=== PATIENT | male | born 1985 | race Caucasian/White ===

== ENCOUNTER 2018-02-18 08:16 | Inpatient (IN) ==
--- NOTE | 2018-02-18 08:39 | ED ---
HPI General Chief Complaint: Psychiatric Symptoms Stated Complaint: Psych Eval Time Seen by Provider: 02/18/18 14:06 Source: patient Mode of arrival: ambulatory Limitations: no limitations History of Present Illness HPI Narrative: 32-year-old male presents voluntarily for psychiatric evaluation. His therapist told him to come in for evaluation. He is having suicidal ideation and his [place] is to [place]. He denies history of suicidal attempts. Denies homicidal ideations. Reports visual hallucinations; says he sees white lights out of the corner of his eye. Denies auditory hallucinations. Reports illicit drug use using shrooms and marijuana occasionally. Denies alcohol use and has been sober for 7 months. Denies tobacco use. Admits to taking 3 1 mg Xanax and to 1 mg Klonopin and one extended release Adderall 20 mg within the past 6 hours. Says he did not take his medications and any attempt to kill himself. Says he took them to keep himself from killing himself. Says his thoughts are not aggravated by anything in particular, except for possible recurring memories and trauma. Symptoms are moderate to severe in severity. No known relieving factors. Onset unknown. Duration acute. Denies chest pain, shortness breath, abdominal pain, nausea, vomiting, fevers, change in urine or stool. Allergies to Augmentin. Psychiatrist is Dr. hightower. Psychiatric history of depression, ADHD, PTSD, derealization disorder, panic disorder. Denies other significant past medical history. Has no other medical complaints. No other modifying factors or associated signs and symptoms. Related Data Home Medications Medication Instructions Recorded Confirmed Adderall XR 20 mg PO BID 02/18/18 02/18/18 alprazolam 1 mg PO Q4H PRN 02/18/18 02/18/18 clonazepam 1 mg PO TID 02/18/18 02/18/18 venlafaxine 75 mg PO BID 02/18/18 02/18/18 Allergies Allergy/AdvReac Type Severity Reaction Status Date / Time amoxicillin [From Augmentin] Allergy Intermediate nausea Verified 02/18/18 08:34 clavulanic acid Allergy Intermediate nausea Verified 02/18/18 08:34 [From Augmentin] Review of Systems ROS: all other systems reviewed are negative PMFSH History History Provided By: Patient Social History Social History (Reviewed 02/18/18 @ 08:45 by HENRIK Ruiz Substance History: Past History Second Hand Smoke Exposure: No Smoking Status: Never smoker How Often Do You Have a Drink Containing Alcohol: Never Recent Travel in [facility] within the Last 8 Weeks: No Recent Out of Country Travel within the Last 8 Weeks: No Exam Narrative Exam Narrative: GENERAL: Well-nourished, well-developed male patient, in no acute distress SKIN: Warm and dry. HEAD: Atraumatic. Normocephalic. EYES: Pupils equal and round. ENT: Mucosa pink and moist. NECK: Supple. Trachea midline. CARDIOVASCULAR: Regular rate and rhythm. No murmur appreciated. RESPIRATORY: No accessory muscle use. Clear to auscultation. Breath sounds equal bilaterally. GASTROINTESTINAL: Abdomen soft, non-tender, nondistended. Hepatic and splenic margins not palpable. Bowel sounds are active 4 quadrants. MUSCULOSKELETAL: No obvious deformities. No clubbing. No cyanosis. No edema. NEUROLOGICAL: Awake and alert. Oriented 3. No obvious cranial nerve deficits. Motor grossly within normal limits. Normal speech. Moves all extremities. 5/5 strength to all extremities. PSYCHIATRIC: No delusional thought processes. No hallucinations. Course Initial Documented Vital Signs Temperature 97.8 F 02/18/18 08:18 Pulse Rate 91 H 02/18/18 08:18 Respiratory Rate 20 02/18/18 08:18 Blood Pressure 132/65 02/18/18 08:18 Pulse Oximetry 97 02/18/18 08:18 Last Documented Vital Signs Temperature 98.2 F 02/20/18 05:47 Pulse Rate 77 02/20/18 05:47 Respiratory Rate 16 02/20/18 05:47 Blood Pressure 101/58 L 02/20/18 05:47 Pulse Oximetry 99 02/20/18 05:47 Medical Decision Making [facility] Narrative Medical decision making narrative: Patient presents voluntarily. Chavez act initiated as I feel the patient is a threat to himself with positive suicidal ideation and plan to jump off the [employer] bridge. Physical examination and vital signs are essentially unremarkable. Patient has no medical complaints to report. Psych screen has been ordered. If the laboratory results are unremarkable, the patient will be medically cleared for psychiatric evaluation and disposition. Medical Screen Exam Complete: Yes Emergency Medical Condition: Yes Differential Diagnosis Differential Diagnosis: Suicidal ideation, depression, adjustment disorder, medical clearance for psychiatric evaluation Lab Data Result diagrams: 02/18/18 09:00 02/19/18 08:48 Lab Results 02/18/18 02/18/18 02/18/18 Range/Units 09:00 09:00 09:00 WBC 8.3 (4.0-11.0) th/mm3 RBC 4.81 (4.50-5.90) mil/mm3 Hgb 14.9 (13.0-17.0) gm/dL Hct 43.7 (39.0-51.0) % MCV 90.9 (80.0-100.0) fL MCH 30.9 (27.0-34.0) pg MCHC 34.0 (32.0-36.0) % RDW 13.2 (11.6-17.2) % Plt Count 188 (150-450) th/mm3 MPV 7.0 (7.0-11.0) fL Neut % (Auto) 74.2 H (16.0-70.0) % Lymph % (Auto) 16.9 (9.0-44.0) % Duval % (Auto) 7.8 (0.0-8.0) % Eos % (Auto) 0.5 (0.0-4.0) % Baso % (Auto) 0.6 (0.0-2.0) % Neut # (Auto) 6.1 (1.8-7.7) th/mm3 Lymph # (Auto) 1.4 (1.0-4.8) th/mm3 Duval # (Auto) 0.6 (0.0-0.9) th/mm3 Eos # (Auto) 0.0 (0.0-0.4) th/mm3 Baso # (Auto) 0.0 (0.0-0.2) th/mm3 WBC Differential . Differential Comment Auto diff final Sodium 142 (136-145) meq/L Potassium 3.8 (3.5-5.1) meq/L Chloride 106 (98-107) meq/L Carbon Dioxide 29.6 (21.0-32.0) meq/L Anion Gap 6 (5-15) meq/L BUN 9 (7-18) mg/dL Creatinine 1.10 (0.60-1.30) mg/dL Estimated GFR 77 L (>89) mL/min Random Glucose 56 L (74-106) mg/dL Hemoglobin A1c (4.3-6.0) % Calcium 9.1 (8.5-10.1) mg/dL Total Bilirubin 0.6 (0.2-1.0) mg/dL AST 17 (15-37) U/L ALT 23 (12-78) U/L Alkaline Phosphatase 56 (45-117) U/L Total Protein 6.6 (6.4-8.2) g/dL Albumin 3.8 (3.4-5.0) g/dL Triglycerides (42-150) mg/dL Cholesterol (120-200) mg/dL LDL Cholesterol, Calc (0-99) mg/dL HDL Cholesterol (40.0-60.0) mg/dL Cholesterol/HDL Ratio Ratio TSH 1.990 (0.358-3.740) uIU/mL Salicylates Less than 1.7 L (2.8-20.0) mg/dL Urine Opiates Screen (Neg) Acetaminophen Less than 2.0 L (10.0-30.0) mcg/mL Ur Barbiturates Screen (Neg) Ur Amphetamines Screen (Neg) U Benzodiazepines Scrn (Neg) Urine Cocaine Screen (Neg) U Cannabinoids Screen (Neg) Serum Alcohol Less than 3 (0-5) mg/dL 02/18/18 02/19/18 02/19/18 Range/Units 09:00 08:48 08:48 WBC (4.0-11.0) th/mm3 RBC (4.50-5.90) mil/mm3 Hgb (13.0-17.0) gm/dL Hct (39.0-51.0) % MCV (80.0-100.0) fL MCH (27.0-34.0) pg MCHC (32.0-36.0) % RDW (11.6-17.2) % Plt Count (150-450) th/mm3 MPV (7.0-11.0) fL Neut % (Auto) (16.0-70.0) % Lymph % (Auto) (9.0-44.0) % Duval % (Auto) (0.0-8.0) % Eos % (Auto) (0.0-4.0) % Baso % (Auto) (0.0-2.0) % Neut # (Auto) (1.8-7.7) th/mm3 Lymph # (Auto) (1.0-4.8) th/mm3 Duval # (Auto) (0.0-0.9) th/mm3 Eos # (Auto) (0.0-0.4) th/mm3 Baso # (Auto) (0.0-0.2) th/mm3 WBC Differential Differential Comment Sodium 144 (136-145) meq/L Potassium 3.8 (3.5-5.1) meq/L Chloride 107 (98-107) meq/L Carbon Dioxide 29.4 (21.0-32.0) meq/L Anion Gap 8 (5-15) meq/L BUN 7 (7-18) mg/dL Creatinine 1.00 (0.60-1.30) mg/dL Estimated GFR 86 L (>89) mL/min Random Glucose 87 (74-106) mg/dL Hemoglobin A1c 4.6 (4.3-6.0) % Calcium 9.0 (8.5-10.1) mg/dL Total Bilirubin (0.2-1.0) mg/dL AST (15-37) U/L ALT (12-78) U/L Alkaline Phosphatase (45-117) U/L Total Protein (6.4-8.2) g/dL Albumin (3.4-5.0) g/dL Triglycerides 150 (42-150) mg/dL Cholesterol 130 (120-200) mg/dL LDL Cholesterol, Calc 60 (0-99) mg/dL HDL Cholesterol 39.9 L (40.0-60.0) mg/dL Cholesterol/HDL Ratio 3.25 Ratio TSH (0.358-3.740) uIU/mL Salicylates (2.8-20.0) mg/dL Urine Opiates Screen Neg (Neg) Acetaminophen (10.0-30.0) mcg/mL Ur Barbiturates Screen Neg (Neg) Ur Amphetamines Screen Pos H (Neg) U Benzodiazepines Scrn Pos H (Neg) Urine Cocaine Screen Neg (Neg) U Cannabinoids Screen Neg (Neg) Serum Alcohol (0-5) mg/dL Discharge Plan Discharge Disposition Patient Disposition: 30 Still Patient Discharge Condition Condition: Stable Discharge Order Discharge Orders: Discharge Order (Routine); Ordered 02/20/18 Ordered By: Wojciech Romero Discharge Details Anticipated Discharge Date: 02/20/18 Physicians Team ED Provider: Donny Freeman ED Midlevel Provider: Guerita Landaverde Attending Provider: Wojciech Romero Status ED Status: Left Department Discharge Information Discharge Date/Time: 02/18/18 16:30
[2018-02-18 09:11] LABS: Baso % (Auto) 0.6 % (0.0-2.0); Eos % (Auto) 0.5 % (0.0-4.0); Hematocrit 43.7 % (39.0-51.0); Hemoglobin 14.9 gm/dL (13.0-17.0); Lymph # (Auto) 1.4 th/mm3 (1.0-4.8); Lymph % (Auto) 16.9 % (9.0-44.0); Mean Corpuscular Hemoglobin 30.9 pg (27.0-34.0); Mean Corpuscular Volume 90.9 fL (80.0-100.0); Mono # (Auto) 0.6 th/mm3 (0.0-0.9); Mono % (Auto) 7.8 % (0.0-8.0); Neut # (Auto) 6.1 th/mm3 (1.8-7.7); Neut % (Auto) 74.2 % (16.0-70.0); Platelet Count 188 th/mm3 (150-450); Red Blood Count 4.81 mil/mm3 (4.50-5.90); Red Cell Distribution Width 13.2 % (11.6-17.2); White Blood Count 8.3 th/mm3 (4.0-11.0)
[2018-02-18 09:20] LABS: Amphetamine Screen,Urine Pos (Neg); Barbiturate Screen,Urine Neg (Neg); Cannabinoid Screen,Urine Neg (Neg); Cocaine Screen,Urine Neg (Neg)
[2018-02-18 09:26] LABS: Albumin 3.8 g/dL (3.4-5.0); Anion Gap 6 meq/L (5-15); Blood Urea Nitrogen 9 mg/dL (7-18); Calcium 9.1 mg/dL (8.5-10.1); Carbon Dioxide 29.6 meq/L (21.0-32.0); Chloride 106 meq/L (98-107); Glomerular Filtration Rate 77 mL/min (>89); Glucose,Random 56 mg/dL (74-106); Potassium 3.8 meq/L (3.5-5.1); Sodium 142 meq/L (136-145)
[2018-02-18 09:28] LABS: Alanine Aminotransferase 23 U/L (12-78); Aspartate Aminotransferase 17 U/L (15-37); Opiate Screen,Urine Neg (Neg)
[2018-02-18 09:37] LABS: Alkaline Phosphatase 56 U/L (45-117); Total Protein 6.6 g/dL (6.4-8.2)
[2018-02-18] MEDS ORDERED: Aluminum/Magnesium/Simethacone Susp 30 ML UDC PO PRN (14:19)
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
[2018-02-18] MEDS ORDERED: Acetaminophen 325 MG Tablet PO PRN (17:37)
[2018-02-18] MEDS ORDERED: LORazepam 1 MG Tablet PO PRN (17:39)
[2018-02-18] MEDS ORDERED: Haloperidol Inj 5 MG/ML Ampul IM PRN (17:39)
[2018-02-19] MEDS ORDERED: Aluminum/Magnesium/Simethacone Susp 30 ML UDC PO PRN (09:58)
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
[2018-02-19 10:47] LABS: Carbon Dioxide 29.4 meq/L (21.0-32.0); Potassium 3.8 meq/L (3.5-5.1)
[2018-02-19 10:52] LABS: Chol/HDL Ratio 3.25 Ratio; HDL Cholesterol 39.9 mg/dL (40.0-60.0)
[2018-02-19] MEDS: Venlafaxine XR 75 MG Capsule PO SCH (12:06)
--- NOTE | 2018-02-19 15:40 | P.CONPSY ---
Provisional Diagnosis Admission Date: February 18, 2018 14:18 [place] I.: Adjustment disorder with mixed disturbances of emotion and conduct, history panic attack history PTSD History of Present Illness Service: psychiatry Primary Care Provider: Paul Villeda History of Present Illness: Patient is a 32-year-old white male comes to the hospital voluntarily concerns about depression and suicidal ideation. Patient seen and screened in the ED Kathy acted in the ED because of the threats of intent to jump off the [address] [place]. In the ED urine toxicology positive for amphetamines and benzodiazepines negative for alcohol. At the present time patient sitting quietly in his room on 2600 nurse Isabel present throughout session patient is a thin and slender white male calm and cooperative with me. 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 He gives a history of depression panic attacks PTSD and ADHD he states he goes to Dr. Moses padron who prescribes him Klonopin 1 mg tid a day Xanax 1 mg prn q4h as needed Adderall 20 mg twice daily and Effexor 75 mg twice daily. He states he has been compliant with those medications. He denies any prior psychiatric hospitalizations. He does acknowledge being an alcoholic has been sober for 7 years. He states he has experimented years ago with other drugs. He states he broke up with his girlfriend of about 1 month to days ago that upset him because some increase in the depression he states she has had issues with suicidal ideation with no intent for a number of years. Denies any previous suicide attempts. 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 He does deny voices or visions at the present time. He is somewhat vague in his denial of suicidality at this time. He states she has had a high school education. That he is a vegan. At this time patient does meet criteria for further observation and assessment under the Chavez act. I will do first opinion request second opinion. We will refrain from any opiates or benzodiazepines or psychostimulants. Though we did place him on the ciwa protocol. We will continue his Effexor. Hopeless be a short stay and we can return him to his family perhaps and than 24-48 hours to follow up with Dr. padron in the communityy he patient is a 32-year-old man, domiciled with a friend, unemployed, single, with reported psychiatric history of ADHD, anxiety, alcohol use disorder , who is in outpatient psychiatric care with Dr. Padron and is on clonazepam 1 mg 3 times daily, Xanax 1 mg 4 times per day, Adderall 20 mg twice daily. Who was hospitalized on the [facility] due to suicidal threats. Consulted to me for second opinion. On psychiatric evaluation the patient is calm, cooperative, and stating that he does not need to be here. He says that he made a mistake by coming to the hospital voluntarily looking for help. He reports that he has being in Xanax, Klonopin and Adderall for a long time getting those medications here now. He claims that he was no suicidal he just wanted to be in a safe place for 24 hours. he does denies SI, denies HI. T [facility] - History History Provided By: Patient - Medical / Surgical Hx Neg / Unobtainable Medical Problems Denied: Yes - Tobacco History Second Hand Smoke Exposure: No Tobacco Use In Past 30 Days: No Smoking Status: Never smoker - Alcohol History How Often Do You Have a Drink Containing Alcohol: Never - Substance Use History Substance History: Past History - Substance Use Type Marijuana Status: Early Remission Route Used: Inhalation Frequency: twice in the last 12 months, few joints Reason for Use: Calm Down, Sleep Comment: no alcohol for 7 months - Travel History Recent Travel in the [place] Within the Last 8 Weeks: No Recent Travel Out of the Country Within the Last 8 Weeks: No - Immunization History Tetanus Immunization: >5 Years Hx Influenza Vaccine This Season: No Medications and Allergies Active Medications: Active Medications Acetaminophen (Tylenol) 650 mg PO Q4H PRN PRN Reason: PAIN 1-10 AND/OR FEVER >101F Al Hydrox/Mg Hydrox/Simethicone (Mag-Al Plus Susp Liq) 30 ml PO Q6H PRN PRN Reason: DYSPEPSIA Al Hydroxide/Mg Hydroxide (Milk Of Magnesia Liq) 30 ml PO Q12H PRN PRN Reason: Mild Constipation Flumazenil (Romazecon Inj) 0.2 mg IV.PUSH Q1M PRN PRN Reason: OVERSEDATION Haloperidol Lactate (Haldol Inj) 1 mg IM Q15M PRN PRN Reason: for severe agitation Lorazepam (Ativan) 2 mg PO Q2H PRN PRN Reason: for CIWA 11-14 Lorazepam (Ativan Inj) 2 mg IM Q2H PRN PRN Reason: for CIWA 11-14 Lorazepam (Ativan Inj) 2 mg IM Q1H PRN PRN Reason: for CIWA 15-20 Lorazepam (Ativan Inj) 2 mg IM Q15M PRN PRN Reason: for CIWA > 20 Lorazepam (Ativan) 1 mg PO Q4H PRN PRN Reason: for CIWA 8-10 Last Admin: 02/18/18 22:55 Dose: 1 mg Lorazepam (Ativan Inj) 1 mg IM Q4H PRN PRN Reason: for CIWA 8-10 Lorazepam (Ativan Inj) 0.5 mg IM Q12H PRN PRN Reason: MODERATE TO SEVERE ANXIETY Venlafaxine HCl (Effexor Xr) 150 mg PO DAILY JULES Last Admin: 02/19/18 12:06 Dose: 150 mg Allergies Allergy/AdvReac Type Severity Reaction Status Date / Time amoxicillin [From Augmentin] Allergy Intermediate nausea Verified 02/18/18 08:34 clavulanic acid Allergy Intermediate nausea Verified 02/18/18 08:34 [From Augmentin] Home Medications Medication Instructions Recorded Confirmed Type Adderall XR 20 mg PO BID 02/18/18 02/18/18 History alprazolam 1 mg PO Q4H PRN 02/18/18 02/18/18 History clonazepam 1 mg PO TID 02/18/18 02/18/18 History venlafaxine 75 mg PO BID 02/18/18 02/18/18 History Exam Vital signs: Vital Signs 02/18/18 15:45 02/19/18 06:11 Temperature 98.7 F 97.9 F Pulse Rate 88 74 Respiratory Rate 18 17 Blood Pressure 112/58 L 100/58 L Pulse Oximetry 98 96 Intake & Output 02/18/18 02/19/18 02/19/18 18:59 06:59 18:59 Weight 71.9 kg Other: Date of Last Bowel Movement 02/18/18 Weight On Admission 71.9 kg Mental Status Examination Appearance: Appropriate Consciousness: Alert Orientation: x4 Motor Activity: Normal gait Speech: Unremarkable Language: Adequate Fund of Knowledge: Adequate Attention and Concentration: Adequate Memory: Unremarkable Mood: Sad Affect: Other (Slight decreased range and intensity) Thought Process & Associations: Intact, Logical Thought Content: Appropriate Hallucination Type: None Delusion Type: None Suicidal Ideation: Yes (Vaguely denies today) Suicidal Plan: Yes (J[place] off [place] [address] [place]) Suicidal Intention: Yes (Vaguely denies today) Homicidal Ideation: No Homicidal Plan: No Homicidal Intention: No Insight: Adequate Judgment: Adequate Assessment and Plan - Assessment (1) Adjustment disorder with mixed disturbance of emotions and conduct Code(s): F43.25 - Adjustment disorder with mixed disturbance of emotions and conduct Status: Acute - Plan Plan: I have seen and examined this patient, reviewed and discussed this patient with Dr. Romero, I agree and concur with his assessment and plan. Consult appreciated. Justification for Continued Inpatient Stay: Patient will continue admission under the care of Dr. Romero Request Healthcare Surrogate/Guardian Advocate?: No
[2018-02-19 16:20] LABS: Hemoglobin A1c 4.6 % (4.3-6.0)
[2018-02-20] MEDS: Venlafaxine XR 75 MG Capsule PO SCH (09:21)
--- NOTE | 2018-02-20 12:50 | P.DSPSY ---
Psychiatry Discharge Summary Inpatient Psychiatric care?: Yes Advance Directives: No Mental Health Advance Directive: No Health Care Proxy: No - Admission Admission Date: February 18, 2018 14:18 - Admission Diagnosis (1) Adjustment disorder with mixed disturbance of emotions and conduct Code(s): F43.25 - Adjustment disorder with mixed disturbance of emotions and conduct Brief History: Patient is a 32-year-old white male comes to the hospital voluntarily concerns about depression and suicidal ideation. Patient seen and screened in the ED Kathy acted in the ED because of the threats of intent to jump off the [address] [employer] [address] [place]. In the ED urine toxicology positive for amphetamines and benzodiazepines negative for alcohol. At the present time patient sitting quietly in his room on 2600 nurse Isabel present throughout session patient is a thin and slender white male calm and cooperative with me. 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 He gives a history of depression panic attacks PTSD and ADHD he states he goes to Dr. Moses washington who prescribes him Klonopin 1 mg tid a day Xanax 1 mg prn q4h as needed Adderall 20 mg twice daily and Effexor 75 mg twice daily. He states he has been compliant with those medications. He denies any prior psychiatric hospitalizations. He does acknowledge being an alcoholic has been sober for 7 years. He states he has experimented years ago with other drugs. He states he broke up with his girlfriend of about 1 month to days ago that upset him because some increase in the depression he states she has had issues with suicidal ideation with no intent for a number of years. Denies any previous suicide attempts. 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 He does deny voices or visions at the present time. He is somewhat vague in his denial of suicidality at this time. He states she has had a high school education. That he is a vegan. At this time patient does meet criteria for further observation and assessment under the Chavez act. I will do first opinion request second opinion. We will refrain from any opiates or benzodiazepines or psychostimulants. Though we did place him on the ciwa protocol. We will continue his Effexor. Hopeless be a short stay and we can return him to his family perhaps and than 24-48 hours to follow up with Dr. washington in the community Tobacco Use In Past 30 Days: No How Often Do You Have a Drink Containing Alcohol: Never Hospital Course: Patient's hospital course was uneventful, patient is seen today in his room with floor staff. Patient states she slept well, surprisingly well for him. Says he feels calm cooperative he also feels that his thinking is much clearer being off the benzodiazepines. He continues to deny suicidality homicidality voice or visions. He does have an appointment with his psychiatrist Dr. Moses washington later this afternoon. At this point feel patient reached maximum benefit of this hospitalization. Thus patient will be discharged today to himself no Rx by me. He will follow up with Dr. Moses washington this afternoon. Patient able contract with us to do no harm - Discharge Discharge Date: 02/20/18 - Discharge Diagnosis (1) Adjustment disorder with mixed disturbance of emotions and conduct Diagnosis: Principal Code(s): F43.25 - Adjustment disorder with mixed disturbance of emotions and conduct Status: Acute Discharge Disposition: Home - Discharge Instructions Discharge Diet: Regular Diet Activities You Can Perform: Regular- No Restrictions - Discharge Time > 30 minutes Mental Status Examination Appearance: Appropriate Consciousness: Alert Orientation: x4 Motor Activity: Normal gait Speech: Unremarkable Language: Adequate Fund of Knowledge: Adequate Attention and Concentration: Adequate Memory: Unremarkable Mood: Sad Affect: Other (Slight decreased range and intensity) Thought Process & Associations: Intact, Logical Thought Content: Appropriate Hallucination Type: None Delusion Type: None Suicidal Ideation: Yes (Vaguely denies today) Suicidal Plan: Yes (J[place] off [place] [address] [place]) Suicidal Intention: Yes (Vaguely denies today) Homicidal Ideation: No Homicidal Plan: No Homicidal Intention: No Insight: Adequate Judgment: Adequate Discharge/Advance Care Plan - Results Vital Signs: Last Vital Signs Temp 98.2 F 02/20/18 05:47 Pulse 77 02/20/18 05:47 Resp 16 02/20/18 05:47 BP 101/58 L 02/20/18 05:47 Pulse Ox 99 02/20/18 05:47 Lab Results: Abnormal Lab Results 02/19/18 08:48 Hemoglobin A1c 4.6 Laboratory Results Hemoglobin A1c 4.6 % (4.3-6.0) 02/19/18 08:48 Triglycerides 150 mg/dL (42-150) 02/19/18 08:48 Cholesterol 130 mg/dL (120-200) 02/19/18 08:48 LDL Cholesterol, Calc 60 mg/dL (0-99) 02/19/18 08:48 HDL Cholesterol 39.9 mg/dL (40.0-60.0) L 02/19/18 08:48 TSH 1.990 uIU/mL (0.358-3.740) 02/18/18 09:00 Summary of Procedures: None done Pending Results: None - Medications Number of antipsychotic medications at discharge: 0 - Discharge Care Plan Goals to Promote Your Health: * To prevent worsening of your condition and complications * To maintain your health at the optimal level Directions to Meet Your Goals: Take your medications as prescribed Follow your dietary instruction Follow activity as directed Keep your appointments as scheduled Take your immunizations and boosters as scheduled If your symptoms worsen call your PCP, if no PCP go to Urgent Care Center or Emergency Room For 22/01 questions related to your inpatient stay or results of tests pending at discharge, please contact Dr. Wojciech Romero MD at Smoking is Dangerous to Your Health. Avoid second hand smoking
== END 2018-02-20 14:00 | disposition home or self-care (01) ==
LOC: NEPD 08:16 → NEDA 14:18 → H260 16:30
PROVIDERS: ADMIT Psychiatry & Neurology Psychiatry; ATTEND Psychiatry & Neurology Psychiatry